=== PATIENT | female | born 1990 | race African-American/Black ===

== ENCOUNTER 2021-04-02 17:40 | Emergency (ER) | payer MEDICAID ==
[~2021-04-02] VITALS: Ht 165.1 cm; Wt 70.0 kg
[2021-04-02] MEDS ORDERED: KEPP500 PO (17:50)
[2021-04-02] MEDS ORDERED: LEVETIRACETAM 500MG TABLET PO ONE (19:45)
[2021-04-02 20:16] VITALS: BP 122/82
== END 2021-04-02 20:16 | disposition home or self-care (01) ==
LOC: ER 17:40
DX: R56.9 Unspecified convulsions (principal); Z88.2 Allergy status to sulfonamides
CPT/HCPCS: 99283; Z7610